=== PATIENT | male | born 1970 | race Caucasian/White ===

== ENCOUNTER 2023-10-17 16:44 | Emergency (ER) | payer BC, SELFPAY ==
[2023-10-17 16:53] VITALS: BP 118/69; PULSE 77; RESP 18; TEMP 36.6; O2SAT 99; BMI 25.6
[2023-10-17] MEDS: lidocaine HCL 2 % MULTIDOSE 20 ML VIAL INJECTION (17:05)
--- NOTE | 2023-10-17 17:12 | XR_ITS ---
Patient: DUYEN PICKARD Facility:?[facility] Patient ID:?[id number] Site Patient ID:?[id number]. Site :?[id number] Study:?XRay-Extremity Left THUMB-10/17/2023 5:25:51 PM Ordering Physician:ANDREW Final Report: Indication: Trauma. Technique: Left thumb 3 views. Comparison: None. Findings/Impression: Acute mildly displaced transverse fracture through the thumb distal phalanx diaphysis. No tuft involvement visualized. Alignment is otherwise normal. Mild degenerative changes of the thumb interphalangeal joint. No aggressive osseous lesion. Soft tissue swelling about the thumb. Dictated by Mulugeta Caldwell MD @ 10/17/2023 6:06:25 PM Signed by:?Mulugeta Caldwell MD @10/17/2023 6:06:25 PM (Electronic Signature)
--- NOTE | 2023-10-17 17:13 | ED.GENADULT ---
HPI - General Adult General Chief complaint: Laceration/Wound Stated complaint: puncture through L hand Time Seen by Provider: 10/17/23 16:59 Source: patient Mode of arrival: ambulatory Limitations: no limitations History of Present Illness HPI narrative: 53-year-old male coming in today after he was using a drill and the drill bit cracked and slipped and went into his left thumb. He is unsure of his last tetanus shot. Denies other injury. Related Data Home Medications Medication Instructions Recorded Confirmed No Known Home Medications 10/17/23 10/17/23 Allergies Allergy/AdvReac Type Severity Reaction Status Date / Time No Known Drug Allergies Allergy Verified 10/17/23 16:57 Review of Systems Status of ROS: Reports: 6 or more systems reviewed and unremarkable except as noted in History and below PFSH [facility] Social History Smoking Status: Never smoker How often do you have a drink containing alcohol: 2-4 times a month How many standard drinks containing alcohol do you have on a typical day: 1 or 2 AUDIT-C Alcohol total score: 2 Non-prescribed substance use: denies use Exam Narrative: Exam Narrative: Well-nourished well-developed patient in no acute distress. Alert and oriented. Answers questions appropriately. Mood and affect are appropriate. Thoughts are goal oriented and rational. No tangential or magical thinking noted. Patient speaks in full sentences without needing to catch his breath. HEENT: Normocephalic atraumatic. Pupils are equally round reactive to light. Extraocular muscles are intact. Conjunctivae are moist without any icterus noted. Moist mucous membranes. Extremities: The base of the left thumb nail is cracked from where the drill bit went in. The remainder of the thumb appears normal. He has full range of motion of that thumb. Const: Vital Signs, click to edit/add: Vital Signs - 24 hr 10/17/23 16:53 Temperature 97.9 F Pulse Rate [Pulse Oximeter] 77 Respiratory Rate 18 Blood Pressure [Ri ght Upper Arm] 118/69 Pulse Oximetry 99 Oxygen Delivery Me thod Room Air Course Course ED Course: The finger was cleaned and a digital block was done. The wound was explored. He has a crack at the base of the nail that extends into the skin approximately 6 mm. Two sutures were put a in the skin just proximal to the base of the nail. X-ray of the thumb was done: Does show a fracture of the distal phalanx. Last tetanus shot was in 2013: Tetanus shot was updated today. Wound was dressed, splint was placed on the thumb. Vital Signs Vital signs: Initial Vital Signs Temperature 97.9 F 10/17/23 16:53 Temperature Source Temporal Artery Scan 10/17/23 16:53 Pulse Rate 77 10/17/23 16:53 Respiratory Rate 18 10/17/23 16:53 Blood Pressure 118/69 10/17/23 16:53 Blood Pressure Mean 85 10/17/23 16:53 Blood Pressure Position Sitting 10/17/23 16:53 Pulse Oximetry 99 10/17/23 16:53 Oxygen Delivery Method Room Air 10/17/23 16:53 Vital Signs Temperature 97.9 F 10/17/23 16:53 Pulse Rate 77 10/17/23 16:53 Respiratory Rate 18 10/17/23 16:53 Blood Pressure 118/69 10/17/23 16:53 Pulse Oximetry 99 10/17/23 16:53 Oxygen Delivery Method Room Air 10/17/23 16:53 Temperature 97.9 F 10/17/23 16:53 Pulse Rate 77 10/17/23 16:53 Respiratory Rate 18 10/17/23 16:53 Blood Pressure 118/69 10/17/23 16:53 Pulse Oximetry 99 10/17/23 16:53 Oxygen Delivery Method Room Air 10/17/23 16:53 Medications Administered Medications: Discontinued Medications Generic Name Dose Route Start Last Admin Trade Name Freq PRN Reason Stop Dose Admin Lidocaine HCl 20 ml 10/17/23 17:05 10/17/23 17:05 Lidocaine Hcl 2 % Multidose 20 Ml Vial INJECTION 10/17/23 17:06 20 ml ONCE ONE Administration Medical Decision Making MDM Narrative Medical decision making narrative: 53-year-old male with trauma to the tip of the thumb with a drill bit, fracture to the distal phalanx, requiring 2 sutures. Patient will be sent home on Keflex. Recommend follow up with Orthopedics this week to make sure nothing else needs to be done. Suture removal in 7 days. Discharge Plan Discharge Clinical Impression: Fracture of distal phalanx of finger, Laceration Patient Disposition: Home, Self-Care Condition: Stable Additional Instructions: Keep finger clean and dry. Okay to shower like he normally would but do not soak the finger. Change dressing once daily until it is no longer oozing. Cover the finger if your hands are going to get dirty. Sutures should be removed by your primary care provider in approximately 7 days. Watch for signs of infection which include redness or purulent drainage from the laceration. Likely this will be avoided given the fact that you will be on antibiotics. Please take all antibiotics as prescribed. Pain medications and antibiotics sent to [facility]. Prescriptions: No Action No Known Home Medications Follow Up/Referrals: Beckie Urbina PA-C [Primary Care Provider] - Stand Alone Forms: [facility] Onsite Info Instructions
[2023-10-17] MEDS: TETANUS/DIPHTH/PERTUSSIS 0.5 ML SYRINGE IM (18:17)
== END 2023-10-17 18:33 | disposition home or self-care (01) ==
PROVIDERS: Emergency Provider Family Medicine; PCP Physician Assistant Medical
DX: S61.112A Laceration without foreign body of left thumb with damage to nail, initial encounter (principal); W29.8XXA Contact with other powered hand tools and household machinery, initial encounter; S62.525A Nondisplaced fracture of distal phalanx of left thumb, initial encounter for closed fracture
CPT/HCPCS: 12001; 73140; 90471; 90715; 99283; 99284